=== PATIENT | female | born 1985 ===

== ENCOUNTER 2020-08-19 19:22 | Emergency (ER) | payer SELFPAY ==
[2020-08-19 21:22] LABS: Absolute Lymphocytes (CBC) 1.2 K/uL (0.7-4.9); Basophils % 0.5 % (0-1.3); Hematocrit 34.1 % (36.0-45.0); Lymphocytes % 9.5 % (15.3-44.8); RBC Red Blood Cell Count 3.83 M/uL (3.86-4.86)
[2020-08-19 21:30] LABS: Protime INR 0.97
[2020-08-19 21:43] LABS: ALT/SGPT 12 U/L (12-78); AST/SGOT 9 U/L (15-37); Alkaline Phosphatase 81 U/L (45-117); BUN Blood Urea Nitrogen 18 mg/dL (7-18); Bicarbonate 29 mmol/L (21-32); Bilirubin Direct < 0.1 mg/dL (0-0.2); Bilirubin Total 0.2 mg/dL (0.2-1.0); Glucose Level 83 mg/dL (74-106); Lipase 86 U/L (73-393); NT PRO-BNP 57 pg/mL (<125); Potassium 3.5 mmol/L (3.5-5.1); Protein, Total 6.8 g/dL (6.4-8.2); Sodium Level 141 mmol/L (136-145); Troponin (Emerg Dept Use Only) < 0.02 ng/mL (0.0-0.045)
[2020-08-19 21:44] LABS: Urine Blood Negative (Negative); Urine Glucose Negative (Negative); Urine Protein Negative (Negative); Urine pH 7.5 (5.0-7.0)
[2020-08-19] MEDS ORDERED: MORPHINE 4 MG/ML SYR ONE ×2 (21:52→23:41)
[2020-08-19] MEDS ORDERED: ONDANSETRON 4 MG/2 ML VIAL ONE ×2 (21:53→23:41)
[2020-08-19] MEDS ORDERED: NA CHLORIDE 0.9% 1,000 ML ONE (21:53)
[2020-08-19] MEDS ORDERED: FAMOTIDINE 20 MG/2 ML VIAL IV ONE (21:53)
--- NOTE | 2020-08-19 23:08 | ER ---
Nurse's Notes [facility] Name: Kathleen Madden Age: 35 yrs Sex: Female : 1985 Arrival Date: 08/19/2020 Time: 19:36 Bed 20 Private MD: Diagnosis: Abdominal tenderness;Pleurisy Presentation: 08/19 19:38 Chief complaint: Patient states: upper abdominal pain, epigastric pain x 1 week. ca1 Reports diarrhea and constipation, alternating, whole body hurts and vaginal discharge. Denies fever. Coronavirus screen: Client denies travel out of the [place] in the last 14 days. diarrhea, muscle pain, Client presents with at least one sign or symptom that may indicate coronavirus-19. Standard/surgical mask placed on the client. Provider contacted for isolation considerations. Ebola Screen: Patient negative for fever greater than or equal to 101.5 degrees Fahrenheit, and additional compatible Ebola Virus Disease symptoms Patient denies exposure to infectious person. Patient denies travel to an Ebola-affected area in the 21 days before illness onset. No symptoms or risks identified at this time. Initial Sepsis Screen: Does the patient meet any 2 criteria? No. Patient's initial sepsis screen is negative. Does the patient have a suspected source of infection? No. Patient's initial sepsis screen is negative. Risk Assessment: Do you want to hurt yourself or someone else? Patient reports no desire to harm self or others. Onset of symptoms was August 19, 2020. 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 - Social history:: Smoking status: Patient reports the use of cigarette tobacco products, smokes one-half pack cigarettes per day. - Family history:: not pertinent. Screenin:00 Abuse screen: Denies threats or abuse. Nutritional screening: No deficits noted. jb4 Tuberculosis screening: No symptoms or risk factors identified. Fall Risk None identified. Assessment: 21:00 General: Appears in no apparent distress. uncomfortable, Behavior is calm, cooperative, jb4 appropriate for age. Pain: Complains of pain in anterior aspect of right lateral abdomen and right upper quadrant Pain does not radiate. Pain currently is 10 out of 10 on a pain scale. Neuro: Level of Consciousness is awake, alert, obeys commands, Oriented to person, place, time, situation. Cardiovascular: Patient's skin is warm and dry. Respiratory: Airway is patent Respiratory effort is even, unlabored, Respiratory pattern is regular, symmetrical. GI: Abdomen is flat, Reports upper abdominal pain. : No signs and/or symptoms were reported regarding the genitourinary system. EENT: No signs and/or symptoms were reported regarding the EENT system. Derm: Skin is intact, Skin is pink, warm \T\ dry. Musculoskeletal: Circulation, motion, and sensation intact. Range of motion: intact in all extremities. 21:55 Reassessment: Patient appears in no apparent distress at this time. Patient and/or jb4 family updated on plan of care and expected duration. Pain level reassessed. Patient is alert, oriented x 3, equal unlabored respirations, skin warm/dry/pink. PT to CT. 23:00 Reassessment: Patient appears in no apparent distress at this time. Patient and/or jb4 family updated on plan of care and expected duration. Pain level reassessed. Patient is alert, oriented x 3, equal unlabored respirations, skin warm/dry/pink. 23:44 Reassessment: Patient appears in no apparent distress at this time. Patient and/or jb4 family updated on plan of care and expected duration. Pain level reassessed. Patient is alert, oriented x 3, equal unlabored respirations, skin warm/dry/pink. PT verbalized understanding of d/c and follow up instructions. Vital Signs: 19:38 BP 150 / 103; Pulse 120; Resp 18 S; Temp 97.9(TE); Pulse Ox 100% on R/A; Weight 47.63 ca1 kg (R); Height 5 ft. 2 in. (157.48 cm) (R); Pain 8/10; 21:30 BP 142 / 108; Pulse 100; Resp 18; Pulse Ox 100% on R/A; jb4 23:00 BP 139 / 99; Pulse 104; Resp 16; Pulse Ox 99% on R/A; jb4 19:38 Body Mass Index 19.20 (47.63 kg, 157.48 cm) ca1 ED Course: 19:36 Patient arrived in ED. ag3 19:40 Triage completed. ca1 19:41 Arm band placed on right wrist. ca1 20:42 Jarred Mendenhall MD is Attending Physician. benny 20:56 Live Stoddard, RN is Primary Nurse. jb4 21:00 Patient has correct armband on for positive identification. Bed in low position. Call jb4 light in reach. Side rails up X 1. environmental protection forester on. Pulse ox on. NIBP on. 21:10 Initial lab(s) drawn, by me, sent to lab. Inserted saline lock: 18 gauge in right jb4 antecubital area, using aseptic technique. Blood collected. 21:30 XRAY Chest (1 view) In Process Unspecified. EDMS 22:18 CT Aorta for Dissection In Process Unspecified. EDMS 23:07 Jabier Cobb MD is Referral Physician. benny 23:07 Rah Landry MD is Referral Physician. benny 23:45 No provider procedures requiring assistance completed. IV discontinued, intact, jb4 bleeding controlled, No redness/swelling at site. Pressure dressing applied. Administered Medications: 20:38 Drug: TORadol (ketorolac) 30 mg Route: IVP; Site: right antecubital; jb4 23:46 Follow up: Response: No adverse reaction jb4 21:40 Drug: Zofran (Ondansetron) 4 mg Route: IVP; Site: right antecubital; jb4 22:10 Follow up: Response: No adverse reaction; Marked relief of symptoms jb4 21:42 Drug: NS 0.9% 1000 ml Route: IV; Rate: 1 bolus; Site: right antecubital; jb4 22:40 Follow up: Response: No adverse reaction; IV Status: Completed infusion; IV Intake: jb4 1000ml 21:42 Drug: morphine 4 mg Route: IVP; Site: right antecubital; jb4 22:10 Follow up: Response: No adverse reaction; Marked relief of symptoms; RASS: Alert and jb4 Calm (0) 21:43 Drug: Pepcid (famotidine) 20 mg Route: IVP; Site: right antecubital; jb4 22:10 Follow up: Response: No adverse reaction; Marked relief of symptoms jb4 23:28 Drug: Zofran (Ondansetron) 4 mg Route: IVP; Site: right antecubital; jb4 23:46 Follow up: Response: No adverse reaction jb4 23:30 Drug: morphine 4 mg Route: IVP; Site: right antecubital; jb4 23:46 Follow up: Response: No adverse reaction jb4 23:33 Not Given (incorrect order): TORadol (ketorolac) 60 mg IM once jb4 Intake: 22:40 IV: 1000ml; Total: 1000ml. jb4 Outcome: 23:07 Discharge ordered by . benny 23:45 Discharged to home ambulatory. jb4 23:45 Condition: stable 23:45 Discharge instructions given to patient, Instructed on discharge instructions, follow up and referral plans. medication usage, Demonstrated understanding of instructions, follow-up care, medications, Prescriptions given X 3. 23:46 Patient left the ED. jb4 Signatures: Dispatcher [employer] EDMS Jarred Mendenhall MD MD cha Bryson, James, RN RN jb4 Doreen Negron ag3 Laotya Ly RN RN ca1 Corrections: (The following items were deleted from the chart) 19:42 19:38 Acuity: SURENDRA 3 ca1 ca1 21:45 20:42 NS 0.9% 1000 ml IV at 1 bolus in right antecubital jb4 jb4
--- NOTE | 2020-08-19 23:08 | EDPHYS ---
Physician Documentation [facility] Name: Kathleen Madden Age: 35 yrs Sex: Female : 1985 Arrival Date: 08/19/2020 Time: 19:36 Bed 20 Private MD: HOWARD Physician Jarred Mendenhall HPI: 08/19 21:04 This 35 yrs old Female presents to ER via Ambulatory with complaints of benny Abdominal Pain. 21:04 The patient has shortness of breath at rest. Onset: The symptoms/episode began/occurred benny 2 day(s) ago. Duration: The symptoms are continuous, and are steadily getting worse. The patient's shortness of breath is aggravated by light activity, is alleviated by nothing. The patient presents with abdominal pain in the epigastric area, in the right upper quadrant. Onset: The symptoms/episode began/occurred 2 day(s) ago. The symptoms do not radiate. Associated signs and symptoms: The patient has no apparent associated signs or symptoms. Severity of symptoms: At their worst the symptoms were moderate in the emergency department the symptoms are unchanged. Associated signs and symptoms: none. 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 - Social history:: Smoking status: Patient reports the use of cigarette tobacco products, smokes one-half pack cigarettes per day. - Family history:: not pertinent. ROS: 21:04 Constitutional: Negative for fever, chills, and weight loss, Eyes: Negative for injury, benny pain, redness, and discharge, ENT: Negative for injury, pain, and discharge, Neck: Negative for injury, pain, and swelling, Cardiovascular: Negative for chest pain, palpitations, and edema, Back: Negative for injury and pain, : Negative for injury, bleeding, discharge, and swelling, MS/Extremity: Negative for injury and deformity, Skin: Negative for injury, rash, and discoloration, Neuro: Negative for headache, weakness, numbness, tingling, and seizure, Psych: Negative for depression, anxiety, suicide ideation, homicidal ideation, and hallucinations, Allergy/Immunology: Negative for hives, rash, and allergies, Endocrine: Negative for neck swelling, polydipsia, polyuria, polyphagia, and marked weight changes, Hematologic/Lymphatic: Negative for swollen nodes, abnormal bleeding, and unusual bruising. 21:04 Respiratory: Positive for cough, pleurisy, of the right lateral posterior chest and right lateral anterior chest. 21:04 Abdomen/GI: Positive for abdominal pain, abdominal cramps, of the epigastric area and right upper quadrant. Exam: 21:04 Constitutional: This is a well developed, well nourished patient who is awake, alert, benny and in no acute distress. Head/Face: Normocephalic, atraumatic. Eyes: Pupils equal round and reactive to light, extra-ocular motions intact. Lids and lashes normal. Conjunctiva and sclera are non-icteric and not injected. Cornea within normal limits. Periorbital areas with no swelling, redness, or edema. ENT: Nares patent. No nasal discharge, no septal abnormalities noted. Tympanic membranes are normal and external auditory canals are clear. Oropharynx with no redness, swelling, or masses, exudates, or evidence of obstruction, uvula midline. Mucous membranes moist. Neck: Trachea midline, no thyromegaly or masses palpated, and no cervical lymphadenopathy. Supple, full range of motion without nuchal rigidity, or vertebral point tenderness. No Meningismus. Chest/axilla: Normal chest wall appearance and motion. Nontender with no deformity. No lesions are appreciated. Cardiovascular: Regular rate and rhythm with a normal S1 and S2. No gallops, murmurs, or rubs. Normal PMI, no JVD. No pulse deficits. Respiratory: Lungs have equal breath sounds bilaterally, clear to auscultation and percussion. No rales, rhonchi or wheezes noted. No increased work of breathing, no retractions or nasal flaring. Abdomen/GI: Soft, non-tender, with normal bowel sounds. No distension or tympany. No guarding or rebound. No evidence of tenderness throughout. Back: No spinal tenderness. No costovertebral tenderness. Full range of motion. Skin: Warm, dry with normal turgor. Normal color with no rashes, no lesions, and no evidence of cellulitis. MS/ Extremity: Pulses equal, no cyanosis. Neurovascular intact. Full, normal range of motion. Neuro: Awake and alert, GCS 15, oriented to person, place, time, and situation. Cranial nerves II-XII grossly intact. Motor strength 5/5 in all extremities. Sensory grossly intact. Cerebellar exam normal. Normal gait. Psych: Awake, alert, with orientation to person, place and time. Behavior, mood, and affect are within normal limits. 21:04 Musculoskeletal/extremity: ROM: no acute changes, intact in all extremities, full active range of motion, full passive range of motion, Circulation is intact in all extremities. Sensation intact. Compartment Syndrome exam of affected extremity: is normal. Joints: All joints appear normal with full range of motion. Weight bearing: able to fully bear weight, Tendon exam: unable to examine DVT Exam: No signs of deep vein thrombosis. no pain, no swelling, no tenderness, negative Homans' sign noted on exam, no appreciated bluish discoloration, no erythema, no increased warmth. 21:47 ECG was reviewed by the Attending Physician. [facility] Vital Signs: 19:38 BP 150 / 103; Pulse 120; Resp 18 S; Temp 97.9(TE); Pulse Ox 100% on R/A; Weight 47.63 ca1 kg (R); Height 5 ft. 2 in. (157.48 cm) (R); Pain 8/10; 21:30 BP 142 / 108; Pulse 100; Resp 18; Pulse Ox 100% on R/A; jb4 23:00 BP 139 / 99; Pulse 104; Resp 16; Pulse Ox 99% on R/A; jb4 19:38 Body Mass Index 19.20 (47.63 kg, 157.48 cm) ca1 MDM: 20:43 Patient medically screened. benny 21:07 Differential diagnosis: Bronchitis CHF exacerbation, Pneumothorax pulmonary edema, benny Pulmonary Embolism appendicitis, coronary artery disease, gastroesophageal reflux disease, Irritable bowel syndrome, non-specific abd pain, pancreatitis, Peptic Ulcer Disease, Pyelonephritis, urinary tract infection. Antibiotic administration: Not indicated. The patient's Wells Deep Vein Thrombosis Score was calculated as follows: Total Score: 0-2 Pts- Low Risk. The patient's pulmonary embolism risk score was calculated as follows: Total Score: 0-2 points. This patient was found to be at low risk for a pulmonary embolism by using the Well's assessment criteria. Immunization status:. Data reviewed: vital signs, nurses notes, lab test result(s), EKG, radiologic studies, CT scan, plain films. Data interpreted: library monitor: rate is 120 beats/min, rhythm is regular, Pulse oximetry: on room air is 100 %. Test interpretation: by ED physician or midlevel provider: ECG, plain radiologic studies. Counseling: I had a detailed discussion with the patient and/or guardian regarding: the historical points, exam findings, and any diagnostic results supporting the discharge/admit diagnosis, lab results, radiology results. 08/19 21:03 Order name: Basic Metabolic Panel [facility] 08/19 21:04 Order name: Basic Metabolic Panel; Complete Time: 21:46 [facility] 08/19 21:04 Order name: CBC with Diff; Complete Time: 21:46 [facility] 08/19 21:04 Order name: LFT's; Complete Time: 21:46 [facility] 08/19 21:04 Order name: Magnesium; Complete Time: 21:46 [facility] 08/19 21:04 Order name: NT PRO-BNP; Complete Time: 21:46 [facility] 08/19 21:04 Order name: PT-INR; Complete Time: 21:46 [facility] 08/19 21:03 Order name: XRAY Chest (1 view) [facility] 08/19 21:03 Order name: EKG; Complete Time: 21:04 [facility] 08/19 21:04 Order name: Troponin (emerg Dept Use Only); Complete Time: 21:46 [facility] 08/19 21:04 Order name: Lipase; Complete Time: 21:46 [facility] 08/19 21:04 Order name: CT Aorta for Dissection [facility] 08/19 21:44 Order name: Urine Dipstick-Ancillary; Complete Time: 21:46 EDMI 08/19 21:44 Order name: Urine --Ancillary (enter results); Complete Time: 23:07 ar5 08/19 21:04 Order name: EKG; Complete Time: 21:05 [facility] 08/19 21:04 Order name: Cardiac monitoring; Complete Time: 21:16 [facility] 08/19 21:04 Order name: EKG - Nurse/Tech; Complete Time: 21:16 [facility] 08/19 21:04 Order name: IV Saline Lock; Complete Time: 21:16 [facility] 08/19 21:04 Order name: Labs collected and sent; Complete Time: 21:16 [facility] 08/19 21:04 Order name: O2 Per Protocol; Complete Time: 21:16 [facility] 08/19 21:04 Order name: O2 Sat Monitoring; Complete Time: 21:16 [facility] 08/19 21:04 Order name: Urine Dipstick-Ancillary (obtain specimen); Complete Time: :43 [facility] 08/19 21:04 Order name: Urine Test (obtain specimen); Complete Time: 21:43 [facility] EC:47 Rate is 102 beats/min. Rhythm is regular. QRS [place] is Normal. PA interval is normal. [facility] QRS interval is normal. QT interval is normal. No Q waves. T waves are Normal. No ST changes noted. Clinical impression: Sinus tachycardia and No evidence of ischemia. Interpreted by me. Reviewed by me. Administered Medications: 20:38 Drug: TORadol (ketorolac) 30 mg Route: IVP; Site: right antecubital; jb4 23:46 Follow up: Response: No adverse reaction jb4 21:40 Drug: Zofran (Ondansetron) 4 mg Route: IVP; Site: right antecubital; jb4 22:10 Follow up: Response: No adverse reaction; Marked relief of symptoms jb4 21:42 Drug: NS 0.9% 1000 ml Route: IV; Rate: 1 bolus; Site: right antecubital; jb4 22:40 Follow up: Response: No adverse reaction; IV Status: Completed infusion; IV Intake: jb4 1000ml 21:42 Drug: morphine 4 mg Route: IVP; Site: right antecubital; jb4 22:10 Follow up: Response: No adverse reaction; Marked relief of symptoms; RASS: Alert and jb4 Calm (0) 21:43 Drug: Pepcid (famotidine) 20 mg Route: IVP; Site: right antecubital; jb4 22:10 Follow up: Response: No adverse reaction; Marked relief of symptoms jb4 23:28 Drug: Zofran (Ondansetron) 4 mg Route: IVP; Site: right antecubital; jb4 23:46 Follow up: Response: No adverse reaction jb4 23:30 Drug: morphine 4 mg Route: IVP; Site: right antecubital; jb4 23:46 Follow up: Response: No adverse reaction jb4 23:33 Not Given (incorrect order): TORadol (ketorolac) 60 mg IM once jb4 Disposition: 08/19/20 23:07 Discharged to Home. Impression: Abdominal tenderness, Pleurisy. - Condition is Stable. - Discharge Instructions: Abdominal Pain, Adult, Pleurisy, Abdominal Pain, Adult, [id number], Pleurisy, [id number]. - Prescriptions for Bentyl 20 mg Oral Tablet - take 1 tablet by ORAL route every 6 hours As needed; 20 tablet. Pepcid 20 mg Oral Tablet - take 1 tablet by ORAL route every 12 hours for 10 days; 20 tablet. Zofran 4 mg Oral Tablet - take 1 tablet by ORAL route every 12 hours As needed; 14 tablet. - Medication Reconciliation Form, Thank You Letter, Antibiotic Education, Prescription Opioid Use form. - Follow up: Private Physician; When: 2 - 3 days; Reason: Recheck today's complaints, Continuance of care, Re-evaluation by your physician. Follow up: Jabier Cobb; When: 2 - 3 days; Reason: Recheck today's complaints, Continuance of care, Re-evaluation by your physician. Follow up: Rah Landry MD; When: 2 - 3 days; Reason: Recheck today's complaints, Continuance of care, Re-evaluation by your physician. - Problem is new. - Symptoms have improved. Signatures: Dispatcher [employer] EDMI Jarred Mendenhall MD MD cha Bryson, James, RN RN Latoya Hwang RN RN ca1 Corrections: (The following items were deleted from the chart) 21:08 21:05 Chest Single View+[email or web address].[email or web address] ordered. [facility] 21:12 21:03 Cardiac monitoring ordered. jb4 jb4 21:12 21:03 EKG - Nurse/Tech ordered. jb4 jb4 21:12 21:03 IV Saline Lock ordered. jb4 jb4 21:12 21:03 Labs collected and sent ordered. jb4 jb4 21:12 21:03 Oxygen Per Protocol ordered. jb4 jb4 21:12 21:03 O2 Sat Monitoring ordered. jb4 jb4 21:13 21:04 Urine Dipstick-Ancillary ordered. jb4 jb4 21:13 21:04 Urine Test ordered. jb4 jb4 23:46 23:07 08/19/2020 23:07 Discharged to Home. Impression: Abdominal tenderness; Pleurisy. jb4 Condition is Stable. Discharge Instructions: Abdominal Pain, Adult, Pleurisy, Abdominal Pain, Adult, [id number], Pleurisy, [id number]. Prescriptions for Bentyl 20 mg Oral Tablet - take 1 tablet by ORAL route every 6 hours As needed; 20 tablet, Pepcid 20 mg Oral Tablet - take 1 tablet by ORAL route every 12 hours for 10 days; 20 tablet. and Forms are Medication Reconciliation Form, Thank You Letter, Antibiotic Education, Prescription Opioid Use. Follow up: Private Physician; When: 2 - 3 days; Reason: Recheck today's complaints, Continuance of care, Re-evaluation by your physician. Follow up: Jabier Cobb; When: 2 - 3 days; Reason: Recheck today's complaints, Continuance of care, Re-evaluation by your physician. Follow up: Rah Landry; When: 2 - 3 days; Reason: Recheck today's complaints, Continuance of care, Re-evaluation by your physician. Problem is new. Symptoms have improved. benny
[2020-08-19] MEDS ORDERED: KETOROLAC 30 MG/ML INJ ONE (23:53)
[2020-08-20 00:35] VITALS: TEMP 97.9
[2020-08-20 00:37] VITALS: BP 139/99; O2SAT 99
--- NOTE | 2020-08-20 06:46 | RAD REPORT ---
EXAM DESCRIPTION: RAD - Chest Single View - 08/19/2020 9:30 pm CLINICAL HISTORY: CHEST PAIN COMPARISON: None TECHNIQUE: AP portable chest image was obtained 08/19/2020 9:30 pm . FINDINGS: Lungs are clear. Heart and vasculature are normal. No measurable pleural effusion and no p neumothorax. No acute bony abnormality seen. No acute aortic findings suspected. IMPRESSION: No acute cardiopulmonary process.
--- NOTE | 2020-08-20 11:10 | RAD REPORT ---
EXAM DESCRIPTION: CT - Angio Aorta For Dissection - 08/20/2020 6:20 am CLINICAL HISTORY: Abdominal distention;Dyspnea;PE;Dissection COMPARISON: None Available. TECHNIQUE: CTA of the chest, abdomen and pelvis performed following IV administration of iodinated c ontrast. 3-D/MIP reformatted images available. This exam was performed according to our departmental dose-optimization program, which includes automated exposure control, adjustment of the mA and/or kV according to patient size and/or use of iterative reconstruction technique. FINDINGS: CTA: Normal caliber thoracic aorta without evidence of dissection. The great vessels have normal anatomic configuration and are patent throughout their visualized extent. Normal caliber abdominal aorta witho ut evidence of dissection. There is in-line flow from the aorta through the common iliac, external il iac, common femoral, and proximal superficial femoral arteries. The profunda femoral and internal camrenza ac arteries are patent. The celiac, superior mesenteric, and inferior mesenteric arteries are widely patent without evidence of stenosis or occlusion. The renal arteries are widely patent. Accessory inf erior pole left renal artery. Pulmonary arteries demonstrate no filling defects. Chest: Thyroid: No abnormalities of the visualized thyroid. Great Vessels: Great vessels have normal anatomic configuration. Heart: No cardiomegaly, significant pericardial effusion, or coronary artery atherosclerosis Lymph Nodes: No enlarged mediastinal lymph nodes identified. Esophagus: No abnormalities of the esophagus identified Other: No additional findings. Lungs: No airspace opacities identified. Pleura: No pleural effusion or pneumothorax. Trachea/Airways: No abnormalities of the visualized trachea or airways. Abdomen: Liver: Heterogeneous liver parenchyma may be due to arterial phase of contrast bolus timing. Mild pro minence of the common bile duct measuring 1.5 cm. Gallbladder: Prior cholecystectomy. Spleen, Pancreas, and Adrenal Glands: Heterogeneous appearance of the spleen may be related to georges rial phase of contrast. The adrenal glands and pancreas are unremarkable. Kidneys: The kidneys have normal size and contour without evidence of solid mass or hydronephrosis. Vasculature: The aorta and IVC have normal caliber and position. The portal vein is patent. The pro ximal visceral and renal arteries are patent. Stomach: The stomach and duodenum have normal course. Other: No free intraperitoneal air. No free fluid or lymphadenopathy. Pelvis: Bladder: Urinary bladder is unremarkable. Bowel: No dilated loops of large or small bowel. Appendix: Normal appendix. Pelvis: Bilateral ovarian cysts, largest on the right measuring 3.8 cm. Uterus is not enlarged. Bones: No destructive bone lesions identified. IMPRESSION: 1. No evidence of aortic dissection or aneurysm. No pulmonary embolus. 2. Bilateral ovarian cysts, largest on the right measuring 3.8 cm. No follow-up imaging is recommen ded. Reference: J Am Gregory Radiol 2013;10:675-681 3. Mild prominence of the common bile duct measuring 1.5 cm. This may be related to previous cholec ystectomy. Correlation with liver function studies recommended. If there is concern for biliary obstr uction, MRCP would provide additional characterization. Electronically signed by: Peter Villagran 08/19/2020 10:59 PM CDT Due to temporary technical issues with the PACS/Fluency reporting system, reports are being signed by the in house radiologist without review as a courtesy to ensure prompt reporting. The interpreting r adiologist is fully responsible for the content of the report.
--- NOTE | 2020-08-21 07:39 | EKG ---
Test Date: 2020-08-19 Test Time: 21:26:34 Dish Up Person: SHIRA MEASUREMENT RESULTS: Intervals: Rate: 102 MO: 116 QRSD: 78 QT: 336 QTc: 437 [place]: P: 18 MO: 116 QRS: -14 T: -1 INTERPRETIVE STATEMENTS: Sinus tachycardia Minimal voltage criteria for LVH, may be normal variant Borderline ECG No previous ECG available for comparison Electronically Signed On 08-21-20 07:35:04 CDT by Jt Joe
== END 2020-08-19 23:46 | disposition home or self-care (01) ==
LOC: ER 19:22
DX: R09.1 Pleurisy (principal); R10.13 Epigastric pain; F17.210 Nicotine dependence, cigarettes, uncomplicated; I10 Essential (primary) hypertension
CPT/HCPCS: 36415; 71045; 71275; 74175; 80048; 80076; 81003; 81025; 83690; 83735; 83880; 84484; 85025; 85610; 93005; 96361; 96374; 96375; 99284; J2405; J7030; Q9967

== ENCOUNTER 2020-08-20 23:27 | Emergency (ER) | payer SELFPAY ==
[2020-08-21] MEDS ORDERED: MEPERIDINE HCL 50 MG/ML ONE (02:17)
[2020-08-21] MEDS ORDERED: NA CHLORIDE 0.9% 50 ML ONE (02:18)
[2020-08-21] MEDS ORDERED: dexAMETHasone 10 MG/ML VIAL ONE (02:18)
[2020-08-21 02:19] LABS: Absolute Lymphocytes (CBC) 1.1 K/uL (0.7-4.9); Basophils % 0.5 % (0-1.3); Hematocrit 31.6 % (36.0-45.0); Lymphocytes % 11.3 % (15.3-44.8); MPV 7.7 fL (7.6-11.3); RBC Red Blood Cell Count 3.57 M/uL (3.86-4.86)
[2020-08-21 02:25] LABS: ALT/SGPT 97 U/L (12-78); AST/SGOT 47 U/L (15-37); Albumin 2.7 g/dL (3.4-5.0); Alkaline Phosphatase 196 U/L (45-117); BUN Blood Urea Nitrogen 16 mg/dL (7-18); Bicarbonate 28 mmol/L (21-32); Bilirubin Direct < 0.1 mg/dL (0-0.2); Bilirubin Total 0.2 mg/dL (0.2-1.0); Glucose Level 99 mg/dL (74-106); Lipase 142 U/L (73-393); Potassium 3.6 mmol/L (3.5-5.1); Protein, Total 6.5 g/dL (6.4-8.2); Sodium Level 143 mmol/L (136-145)
--- NOTE | 2020-08-21 02:43 | EDPHYS ---
Physician Documentation [facility] Name: Kathleen Madden Age: 35 yrs Sex: Female : 1985 Arrival Date: 08/21/2020 Time: 00:14 Bed 16 Private MD: ED Physician Edwin Qureshi HPI: 08/21 01:03 This 35 yrs old Female presents to ER via Ambulatory with complaints of rn Abdominal Pain, Other, Chest Pain. 01:03 The patient or guardian reports chest pain that is located primarily in the anterior rn chest wall, right. The pain does not radiate. Associated signs and symptoms: Pertinent negatives: abdominal pain, cough, dizziness, lightheadedness, near syncope, palpitations, shortness of breath, syncope, vomiting. The chest pain is described as sharp. Duration: The patient or guardian reports multiple episodes, that are intermittent. Modifying factors: The symptoms are alleviated by nothing. the symptoms are aggravated by deep breath, palpation of area. Severity of pain: At its worst the pain was moderate in the emergency department the pain is unchanged. The patient has experienced a previous episode. The patient has been recently seen at the [facility] Emergency Department. Reports 3 days of right sided chest pain and abd pain, seen here yesterday, had neg ct chest/abdomen/pelvis, sent home, came back because still having pain. No trauma. + smoker. No fever/vomiting/diarrhea/cough.. 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 - Social history:: Smoking status: Patient reports the use of cigarette tobacco products, smokes one-half pack cigarettes per day, Patient/guardian denies using alcohol, street drugs. - Family history:: not pertinent. - Hospitalizations: : No recent hospitalization is reported. ROS: 01:03 Constitutional: Negative for fever, chills, and weight loss, Eyes: Negative for injury, rn pain, redness, and discharge, Neck: Negative for injury, pain, and swelling, Cardiovascular: + right sided chest pain Respiratory: Negative for shortness of breath, wheezing, + right sided pleuritic chest pain Abdomen/GI: Negative for nausea, vomiting, diarrhea, and constipation, Back: Negative for injury and pain, : Negative for injury, bleeding, discharge, and swelling, MS/Extremity: Negative for injury and deformity, Skin: Negative for injury, rash, and discoloration, Neuro: Negative for headache, weakness, numbness, tingling, and seizure. Exam: 01:03 Constitutional: This is a well developed, well nourished patient who is awake, alert, rn appears in pain Head/Face: Normocephalic, atraumatic. Eyes: Pupils equal round and reactive to light, extra-ocular motions intact. Lids and lashes normal. Conjunctiva and sclera are non-icteric and not injected. Cornea within normal limits. Periorbital areas with no swelling, redness, or edema. Cardiovascular: Regular rate and rhythm. No pulse deficits. Respiratory: + mild tachypnea, no retractions Abdomen/GI: soft, non-tender Skin: Warm, dry with normal turgor. Normal color with no rashes, no lesions, and no evidence of cellulitis. MS/ Extremity: Pulses equal, no cyanosis. Neurovascular intact. Full, normal range of motion. Equal circumference. Neuro: Awake and alert, GCS 15 02:37 ECG was reviewed by the Attending Physician. rn Vital Signs: 00:35 BP 154 / 108; Pulse 84; Resp 20; Temp 98.3; Pulse Ox 97% on R/A; Weight 45.36 kg; bb Height 5 ft. 20 in. (203.20 cm); Pain 10/10; 01:37 BP 151 / 91; Pulse 91; Resp 18; Pulse Ox 97% ; sf 02:00 BP 141 / 89; Pulse 86; Resp 16; Pulse Ox 98% ; sf 02:30 BP 153 / 96; Pulse 102; Resp 16; Pulse Ox 97% ; sf 00:35 Body Mass Index 10.99 (45.36 kg, 203.20 cm) bb MDM: 00:47 Patient medically screened. rn 02:37 Differential diagnosis: anxiety, chest wall pain, costochondritis, gastritis, pleurisy, rn pneumothorax, ovarian cyst. Data reviewed: vital signs, nurses notes, lab test result(s), EKG. 02:38 Counseling: I had a detailed discussion with the patient and/or guardian regarding: the rn historical points, exam findings, and any diagnostic results supporting the discharge/admit diagnosis, lab results, radiology results, the need for outpatient follow up, to return to the emergency department if symptoms worsen or persist or if there are any questions or concerns that arise at home, smoking cessation. Response to treatment: the patient's symptoms have markedly improved after treatment, and as a result, I will discharge patient. ED course: Much improved after steroids and pain meds, stable vitals, so far no acute changes in cxr or bloodwork from just yesterday. Normal ecg. Will dc home with anti-inflammatories and recommend smoking cessation.. 02:42 Special discussion: I discussed with the patient/guardian in detail that at this point rn there is no indication for admission to the hospital. It is understood, however, that if the symptoms persist or worsen the patient needs to return immediately for re-evaluation. Based on the history and exam findings, there is no indication for further emergent testing or inpatient evaluation. I discussed with the patient/guardian the need to see the licensed home inspector for further evaluation of the symptoms. I discussed with the patient/guardian the need to see the primary care provider for further evaluation of the symptoms. 02:43 ED course: elevated alk phos compared to 2 days ago, but already s/p cholecystectomy, rn and Lipase normal, recommend to f/u with GI for this.. 08/21 00:56 Order name: Basic Metabolic Panel rn 08/21 00:56 Order name: CBC with Diff rn 08/21 00:56 Order name: Hepatic Function rn 08/21 00:56 Order name: Lipase rn 08/21 00:56 Order name: Basic Metabolic Panel; Complete Time: 02:39 EDMD 08/21 00:57 Order name: CBC with Automated Diff; Complete Time: 02:30 EDMS 08/21 00:56 Order name: IV Saline Lock; Complete Time: 01:45 rn 08/21 00:56 Order name: Labs collected and sent; Complete Time: 01:45 rn 08/21 00:56 Order name: XRAY Chest (1 view) rn 08/21 00:56 Order name: EKG; Complete Time: 00:57 rn 08/21 00:57 Order name: Liver (Hepatic) Function; Complete Time: 02:39 EDMS 08/21 00:57 Order name: Lipase; Complete Time: 02:39 EDMS 08/21 00:56 Order name: EKG - Nurse/Tech; Complete Time: 01:45 rn EC:37 Rate is 89 beats/min. Rhythm is regular. QRS [place] is Normal. DE interval is normal. QRS rn interval is normal. QT interval is normal. No Q waves. T waves are Normal. No ST changes noted. Clinical impression: Normal ECG. Interpreted by me. Reviewed by me. Administered Medications: 02:15 Drug: Demerol (meperidine) 50 mg Route: IVP; Site: left forearm; sf 02:37 Follow up: Response: No adverse reaction; Pain is decreased sf 02:16 Drug: Decadron - Dexamethasone 10 mg Route: IVP; Infused Over: 2 mins; Site: left sf forearm; 02:36 Follow up: Response: No adverse reaction; Pain is decreased sf Disposition: 08/21/20 02:43 Discharged to Home. Impression: Pleurisy, Unspecified ovarian cysts. - Condition is Stable. - Discharge Instructions: Ovarian Cyst, Pleurisy. - Prescriptions for Diclofenac Sodium 75 mg Oral Tablet, Delayed Release (E.C.) - take 1 tablet by ORAL route 2 times per day; 20 tablet. - Medication Reconciliation Form, Thank You Letter, Antibiotic Education, Prescription Opioid Use form. - Follow up: Private Physician; When: As needed; Reason: Recheck today's complaints, Re-evaluation by your physician. - Problem is an ongoing problem. - Symptoms have improved. Signatures: Dispatcher [employer] EDMS Lucero Sanz RN RN bb Nieto, Roman, MD MD rn Fitzpatrick, Steven, RN RN sf Corrections: (The following items were deleted from the chart) 03:05 02:43 08/21/2020 02:43 Discharged to Home. Impression: Pleurisy; Unspecified ovarian sf cysts. Condition is Stable. Forms are Medication Reconciliation Form, Thank You Letter, Antibiotic Education, Prescription Opioid Use. Follow up: Private Physician; When: As needed; Reason: Recheck today's complaints, Re-evaluation by your physician. Problem is an ongoing problem. Symptoms have improved. rn
--- NOTE | 2020-08-21 02:43 | ER ---
Nurse's Notes [facility] Name: Kathleen Madden Age: 35 yrs Sex: Female : 1985 Arrival Date: 08/21/2020 Time: 00:14 Bed 16 Private MD: Diagnosis: Pleurisy;Unspecified ovarian cysts Presentation: 08/21 00:37 Chief complaint: Patient states: I was seen last night for the same symptoms but was bb discharged home ant told to return if pain got worse. I am now having vaginal bleeding but it does not seem like a normal period. I have nausea but no vomiting or diarrhea. Coronavirus screen: Client denies travel out of the [place] in the last 14 days. Ebola Screen: Patient negative for fever greater than or equal to 101.5 degrees Fahrenheit, and additional compatible Ebola Virus Disease symptoms Patient denies exposure to infectious person. Patient denies travel to an Ebola-affected area in the 21 days before illness onset. Initial Sepsis Screen: Does the patient meet any 2 criteria? No. Patient's initial sepsis screen is negative. Does the patient have a suspected source of infection? No. Patient's initial sepsis screen is negative. Risk Assessment: Do you want to hurt yourself or someone else? Patient reports no desire to harm self or others. Onset of symptoms was August 21, 2020. 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 - Social history:: Smoking status: Patient reports the use of cigarette tobacco products, smokes one-half pack cigarettes per day, Patient/guardian denies using alcohol, street drugs. - Family history:: not pertinent. - Hospitalizations: : No recent hospitalization is reported. Screenin:25 Abuse screen: Denies threats or abuse. Denies injuries from another. Nutritional sf screening: No deficits noted. Tuberculosis screening: No symptoms or risk factors identified. Fall Risk None identified. Total Cast Fall Scale indicates No Risk (0-24 pts). Assessment: 01:25 General: Appears in no apparent distress. comfortable, Behavior is calm, cooperative. sf Pain: Complains of pain in chest. Neuro: Level of Consciousness is awake, alert, Oriented to person, place, time, situation. Cardiovascular: Reports chest pain, Patient's skin is warm and dry. Rhythm is sinus rhythm. Respiratory: Reports pain with movement pain with respiration Airway is patent Respiratory effort is even, unlabored, Respiratory pattern is regular, symmetrical. GI: No deficits noted. No signs and/or symptoms were reported involving the gastrointestinal system. : Reports vaginal bleeding that is. EENT: No deficits noted. No signs and/or symptoms were reported regarding the EENT system. Derm: No deficits noted. No signs and/or symptoms reported regarding the dermatologic system. Musculoskeletal: No deficits noted. No signs and/or symptoms reported regarding the musculoskeletal system. 02:37 Reassessment: Patient appears in no apparent distress at this time. Patient and/or sf family updated on plan of care and expected duration. Pain level reassessed. Patient is alert, oriented x 3, equal unlabored respirations, skin warm/dry/pink. Patient states feeling better. Patient states symptoms have improved. Vital Signs: 00:35 BP 154 / 108; Pulse 84; Resp 20; Temp 98.3; Pulse Ox 97% on R/A; Weight 45.36 kg; bb Height 5 ft. 20 in. (203.20 cm); Pain 10/10; 01:37 BP 151 / 91; Pulse 91; Resp 18; Pulse Ox 97% ; sf 02:00 BP 141 / 89; Pulse 86; Resp 16; Pulse Ox 98% ; sf 02:30 BP 153 / 96; Pulse 102; Resp 16; Pulse Ox 97% ; sf 00:35 Body Mass Index 10.99 (45.36 kg, 203.20 cm) bb ED Course: 00:14 Patient arrived in ED. cf2 00:40 Triage completed. bb 00:41 Arm band placed on right wrist. bb 00:46 Edwin Qureshi MD is Attending Physician. rn 01:10 XRAY Chest (1 view) Sent. sf 01:10 X-ray(s) taken. sf 01:17 Azeem Osborn, RN is Primary Nurse. sf 01:25 Patient has correct armband on for positive identification. Placed in gown. Bed in low sf position. Call light in reach. Side rails up X 1. Pulse ox on. NIBP on. Door closed. Noise minimized. Visitors limited. Lights dimmed. Warm blanket given. Verbal reassurance given. 01:31 EKG done, by ED staff, reviewed by Edwin Qureshi MD. sf 01:35 Initial lab(s) drawn, by nv, sent to lab. Inserted saline lock: 20 gauge in left sf forearm, using aseptic technique. Blood collected. 01:45 XRAY Chest (1 view) In Process Unspecified. EDMS 03:04 No provider procedures requiring assistance completed. IV discontinued, intact, sf bleeding controlled, No redness/swelling at site. Pressure dressing applied. Administered Medications: 02:15 Drug: Demerol (meperidine) 50 mg Route: IVP; Site: left forearm; sf 02:37 Follow up: Response: No adverse reaction; Pain is decreased sf 02:16 Drug: Decadron - Dexamethasone 10 mg Route: IVP; Infused Over: 2 mins; Site: left sf forearm; 02:36 Follow up: Response: No adverse reaction; Pain is decreased sf Outcome: 02:43 Discharge ordered by . rn 03:04 Discharged to home ambulatory. sf 03:04 Condition: stable 03:04 Discharge instructions given to patient, Instructed on discharge instructions, follow up and referral plans. medication usage, Demonstrated understanding of instructions, follow-up care, medications, Prescriptions given X 1. 03:05 Patient left the ED. sf Signatures: Dispatcher [employer] EDMS Lucero Sanz RN RN bb Nieto, Roman, MD MD rn Frazier, Celesta 2 Azeem Osborn, JULES RN sf Corrections: (The following items were deleted from the chart) 01:18 01:17 To radiology for Chest Single View+[email or web address]. sf sf
[2020-08-21 03:30] VITALS: TEMP 98.3
[2020-08-21 03:34] VITALS: BP 153/96; O2SAT 97
--- NOTE | 2020-08-21 07:34 | EKG ---
Test Date: 2020-08-21 Test Time: 01:31:23 Architectural Wood Model Maker: AYSHA MEASUREMENT RESULTS: Intervals: Rate: 89 GA: 122 QRSD: 82 QT: 346 QTc: 420 [place]: P: 30 GA: 122 QRS: 60 T: 56 INTERPRETIVE STATEMENTS: Normal sinus rhythm Normal ECG Compared to ECG 08/19/2020 21:26:34 Sinus tachycardia no longer present Left ventricular hypertrophy no longer present Electronically Signed On 08-21-20 07:34:27 CDT by Jt Joe
--- NOTE | 2020-08-21 09:10 | RAD REPORT ---
EXAM DESCRIPTION: RAD - Chest Single View - 08/21/2020 1:45 am CLINICAL HISTORY: CHEST PAIN Chest pain. COMPARISON: Chest Single View dated 08/19/2020 FINDINGS: Portable technique limits examination quality. The lungs are grossly clear. The heart is normal in size. No displaced fractures. IMPRESSION: No acute intrathoracic process suspected.
== END 2020-08-21 03:05 | disposition home or self-care (01) ==
LOC: ER 23:27
DX: R09.1 Pleurisy (principal); N83.209 Unspecified ovarian cyst, unspecified side; I10 Essential (primary) hypertension; F17.210 Nicotine dependence, cigarettes, uncomplicated; Z88.1 Allergy status to other antibiotic agents; Z88.8 Allergy status to other drugs, medicaments and biological substances
CPT/HCPCS: 36415; 71045; 80048; 80076; 83690; 85025; 93005; 96374; 96375; 99285; J1100; J2175